=== PATIENT | female | born 1985 | race Caucasian/White ===

== ENCOUNTER 2021-07-16 00:02 | Observation (INO) ==
[2021-07-16] MEDS ORDERED: 0.9 % Sodium Chloride 1,000 ML IVC ONE (00:05)
[2021-07-16] MEDS ORDERED: *HR* Dextrose 50 % in Water (Syg) 50 ML SYRINGE ONE ×3 (00:10→08:29)
[2021-07-16] MEDS: *HR* Dextrose 50 % in Water (Syg) 50 ML SYRINGE IVP ONE ×2 (00:13→04:20)
[2021-07-16 00:25] LABS: Basophils % 0.3 %; Eosinophils # 0.1 K/mcL (0.0-0.6); Eosinophils % 1.8 %; Hematocrit 37.6 % (35.3-44.9); Hemoglobin 12.5 g/dL (11.5-15.4); Immature Granulocytes % 0.1 % (0-4); Lymphocytes # 3.2 K/mcL (0.6-4.6); Mean Corpuscular HGB Conc 33.2 g/dL (31.6-35.5); Mean Corpuscular Hemoglobin 31.3 pg (28.0-33.3); Mean Platelet Volume 8.7 fL (9.4-12.4); Monocytes # 0.4 K/mcL (0.0-1.3); Neutrophils # 3.4 K/mcL (1.6-8.9); Platelet Count 270 K/mcL (140-400); Red Cell Distribution Width 12.1 % (11.5-14.5); Segmented Neutrophils % 47.8 %; White Blood Count 7.2 K/mcL (4.3-11.1)
[2021-07-16 00:33] LABS: INR 1.3; Prothrombin Time 14.4 Seconds (9.4-12.1)
[2021-07-16 00:36] LABS: Activated Partial Thrombo Time 30.8 Seconds (26.0-36.0)
[2021-07-16 00:46] LABS: Alanine Aminotransferase 16 Units/L (7-52); Albumin/Globulin Ratio 1.6 (1.1-2.2); Alkaline Phosphatase 57 Units/L (34-104); Aspartate Amino Transferase 15 Units/L (13-39); BUN/Creatinine Ratio 10 (6-26); Bilirubin,Indirect 0.3 mg/dL (0.0-1.0); Bilirubin,Total 0.3 mg/dL (0.3-1.0); Blood Urea Nitrogen 9 mg/dL (6-20); Calcium 8.9 mg/dL (8.6-10.3); Carbon Dioxide 27 mEq/L (23-29); Chloride 108 mEq/L (98-107); Creatine Kinase 108 Units/L (30-223); Ethanol < 10 mg/dL (Less than 10); Globulin 2.5 g/dL (2.4-3.5); Glucose 81 mg/dL (70-105); Osmolality,Calculated 292 (280-300); Potassium 3.2 mEq/L (3.5-5.1); Sodium 142 mEq/L (136-145); Total Protein 6.5 g/dL (6.4-8.9); Troponin I < 0.03 ng/mL (< 0.04); eGFR For African Americans > 60 (> 60); eGFR For Non-African Americans > 60 (> 60)
[2021-07-16] MEDS ORDERED: Naloxone 0.4 MG/ML INJ IVP ONE ×3 (03:38→08:29)
[2021-07-16] MEDS ORDERED: Naloxone 0.4 MG/ML INJ ONE ×2 (04:00→08:36)
[2021-07-16] MEDS ORDERED: *HR* Dextrose 50 % in Water (Vial) 50 ML VIAL IVP ONE (04:12)
[2021-07-16 04:59] LABS: Amphetamine Screen,Urine Negative ng/mL (Cutoff=1000); Barbiturate Screen,Urine Negative ng/mL (Cutoff=200); Benzodiazepines Screen,Urine Negative ng/mL (Cutoff=200); Cannabinoid Screen,Urine Negative ng/mL (Cutoff = 50); Cocaine Screen,Urine Negative ng/mL (Cutoff= 300); Opiate Screen,Urine Negative ng/mL (Cutoff=300); Phencyclidine Screen,Urine Negative ng/mL (Cutoff=25)
[2021-07-16 05:03] LABS: Bacteria,Urine Few per hpf (None-Few); Bilirubin,Urine Negative (Negative); Blood,Urine Negative (Negative); Clarity,Urine Clear (Clear); Color,Urine Colorless (Yellow); Glucose,Urine (UA) 100 mg/dL (Normal); Ketones,Urine Negative (Negative); Leukocyte Esterase,Urine Moderate (Negative); Mucus,Urine Few per lpf (None-Few); Nitrite,Urine Positive (Negative); PH,Urine 6.5 pH Units (5.0-8.0); Protein,Urine Negative (Neg-Trace); RBC,Urine 0-3 per hpf (0-3); Specific Gravity,Urine 1.007 (1.010-1.025); Squamous Epithelial Cell,Urine Few per hpf (None-Few); Urobilinogen,Urine Normal (Normal)
[2021-07-16] MEDS ORDERED: cefTRIAXone 1,000 MG in 0.9 % Sodium Chloride Mini Bag 100 ML IVPB ONE (05:33)
[2021-07-16] MEDS ORDERED: Ammonia Inhalant AMPUL ONE (08:26)
[2021-07-16] MEDS ORDERED: *HR* Dextrose 50 % in Water (Syg) 50 ML SYRINGE IVP ONE (08:29)
[2021-07-16] MEDS ORDERED: Naloxone 0.4 MG/ML INJ IVP PRN (09:00)
[2021-07-16] MEDS ORDERED: Ondansetron 4 MG/2 ML VIAL IVP PRN (09:00)
[2021-07-16 12:31] LABS: VBG HCO3 26 mEq/L (21-27); VBG PCO2 44 mmHg (41-51); VBG PH 7.37 pH Units (7.32-7.42); VBG PO2 60 mmHg (25-50)
[2021-07-16 12:34] LABS: Acetaminophen < 10 mcg/mL (10-20); Salicylate < 2.5 mg/dL (15.0-30.0)
[2021-07-16 13:53] LABS: BUN/Creatinine Ratio 11 (6-26); Blood Urea Nitrogen 8 mg/dL (6-20); Calcium 9.2 mg/dL (8.6-10.3); Carbon Dioxide 28 mEq/L (23-29); Chloride 111 mEq/L (98-107); Glucose 84 mg/dL (70-105); Osmolality,Calculated 302 (280-300); Potassium 3.5 mEq/L (3.5-5.1); Sodium 147 mEq/L (136-145); eGFR For African Americans > 60 (> 60); eGFR For Non-African Americans > 60 (> 60)
[2021-07-16 14:22] VITALS: BP 101/52; PULSE 67; TEMP 98.5; O2SAT 97
[2021-07-17] MEDS ORDERED: Cefdinir 300 MG CAPSULE PO SCH (09:00)
== END 2021-07-16 19:20 | disposition home or self-care (01) ==
LOC: 3BNU 00:02 → EMEROOARM 00:02 → 3BNU 10:28
PROVIDERS: ADMIT Internal Medicine; ATTEND Internal Medicine